=== PATIENT | female | born 1945 | race Caucasian/White ===

== ENCOUNTER → 2016-08-23 | Outpatient (CLI) | payer BC, MEDICARE ==
[~2016-08-23] MED LIST: Iopamidol 755 MG/ML 500 ML Multipack Bottle IVPUSH STA
--- NOTE | 2016-08-23 17:31 | CT ---
EXAM DATE: 08/23/16 PATIENT'S AGE: 71 Patient: STEVEN BURNETT Facility: [place], [place] Site . Site : 1945 Study: CT Abdomen/Pelvis [id number]/2017 1:07:51 PM Ordering Physician: Nona Sheth Final Report: INDICATION: LUQ pain. CT ABDOMEN AND PELVIS WITH CONTRAST TECHNIQUE: Multidetector CT imaging was performed through the abdomen and pelvis following intravenous contrast administration using 100 mL Isovue 370. Oral contrast was also given. Coronal and sagittal reconstructions were generated. COMPARISON: None. FINDINGS: Lower chest: Lung bases are clear. Liver: Within normal limits. Gallbladder and bile ducts: Several calcified gallstones within the gallbladder , without findings to suggest cholecystitis. No biliary dilation identified. Pancreas: Unremarkable. Spleen: Normal. Adrenals: Thickening of the right adrenal and probable tiny adenoma in the left adrenal. Kidneys, ureters, and urinary bladder: Cortical scarring and small parenchymal calcification at the upper pole of the left kidney with associated 3 centimeter fluid attenuation structure which likely represents a dilated calyx. Followup renal ultrasound to exclude an enlarging mass at the upper pole of the left kidney should be considered. No definite solid renal masses or hydronephrosis. Incompletely distended urinary bladder. No bladder mass or definite wall thickening. Gastrointestinal tract: Normal caliber small bowel without wall thickening or obstruction. The appendix is normal. Multiple diverticula of the distal descending colon and sigmoid, without evidence of diverticulitis. Small fat- containing umbilical hernia. Vascular structures: Normal caliber abdominal aorta. Mild aortoiliac atherosclerotic calcifications. Coronary artery calcifications are also noted. Peritoneum: No free air, abscess, or significant free fluid. Lymph nodes: No pathologically enlarged nodes identified. Reproductive organs: No pelvic masses. Bones: Moderate multilevel spondylosis. IMPRESSION: 1. No acute abnormality identified. No specific cause for the patient`s symptoms is demonstrated. 2. Left colonic diverticulosis without evidence of diverticulitis. 3. Chronic-appearing cortical scarring and probable dilated calyx at the upper pole of the left kidney. Follow up renal ultrasound in 6 months is suggested to rule out an enlarging lesion here. 4. Cholelithiasis. 5. Nonacute additional findings as detailed above. CINDI NEWMAN MD [employer] Dictated by Lawrence Newman MD @ 08/23/2016 1:32:31 PM Dictated by: Lawrence Newman MD @ 08/23/2016 13:33:01 (Electronic Signature) Report Signed by Proxy and Original Signed Document filed in the Medical Record. AMADA
== END ==
LOC: MW.DI 08:14
PROVIDERS: ATTEND Family Medicine
DX: R10.12 Left upper quadrant pain (principal); K57.90 Diverticulosis of intestine, part unspecified, without perforation or abscess without bleeding; K80.20 Calculus of gallbladder without cholecystitis without obstruction
CPT/HCPCS: 74177; Q9967

== ENCOUNTER 2019-03-03 10:54 | Emergency (ER) | payer MEDICARE, BC ==
[2019-03-03] MEDS ORDERED: Sodium Chloride 0.9% 10 ML Syringe FLUSH PRN (10:56)
[2019-03-03] MEDS ORDERED: Sodium Chloride 0.9% 2.5 ML Syringe FLUSH PRN (10:56)
[2019-03-03] MEDS ORDERED: Sodium Chloride 0.9% 1,000 ML IV ONE ×3 (10:57→20:27)
--- NOTE | 2019-03-03 11:03 | EDM.PDOC ---
ED HPI GENERAL MEDICAL PROBLEM - General Chief Complaint: CPR in Progress Stated Complaint: N/A Time Seen by Provider: 03/03/19 11:00 Source of Information: Reports: EMS History Limitations: Reports: No Limitations - History of Present Illness INITIAL COMMENTS - FREE TEXT/NARRATIVE: HISTORY AND PHYSICAL: History of present illness: Patient is a 71-year-old female, who is brought in by EMS. EMS states upon arrival, patient was talking to them and stating she didn't feel well. EMS states that she slumped down in her chair and when the attached monitor she was in asystole and did not have a pulse. CPR was started in route and 3 rounds of epinephrine were given with ROSC prior to arrival to ED. Upon arrival to the ED , tachycardic with pulse and Combitube in place with right tibial IO in place per EMS. Upon arrival 72%O2 on Combitube. BP 122/60. HR 120. Review of systems: As per history of present illness and below otherwise all systems reviewed and negative. Past medical history: As per history of present illness and as reviewed below otherwise noncontributory. Surgical history: As per history of present illness and as reviewed below otherwise noncontributory. Social history: See social history for further information Family history: As per history of present illness and as reviewed below otherwise noncontributory. Physical exam: General: Patient is unconscious. HEENT: Atraumatic, normocephalic, pupils equal and reactive bilaterally, negative for conjunctival pallor or scleral icterus, mucous membranes moist, throat with Combitube in place, frothy blood noted in the tube, neck supple, nontender, trachea midline. Lungs: Diffuse crackles to auscultation, breath sounds equal bilaterally. Heart: S1S2, regular rate and rhythm without overt murmur Abdomen: Obese, Soft, nondistended. Negative for masses or hepatosplenomegaly. Pelvis: Stable nontender. Genitourinary: Deferred. Rectal: Deferred. Skin: Pale, No lesions or rashes noted. Extremities: Atraumatic, negative for cords or calf pain. Neurovascular unremarkable. Neuro: Unconscious. Notes: Alejandra rebollar called en route to ED. Dr. Mc directly involved in patient care. FRANCHISE SPECIALIST/Anesthesia: changed out Combitube with 7 ET tube. See consult note for procedure. Along with Dr. Rivero, general surgery, central line placed in right femoral. Dr. Galvez, [facility], accepting of transfer. Flight arranged. BP80/50s, Dopamine given Diagnostics: CBC, CMP, chest x-ray, UA, urine urine drug screen, EKG, troponin, INR, BNP, ABG Therapeutics: Dopamine, saline, Norepinephrine, bicarb, vela cath, Yang-synephrine, rocephin Impression: Respiratory Failure Hypotension Critical care time, 40 minutes Plan: 1. Transfer to [facility] to Dr. Galvez via flight Definitive disposition and diagnosis as appropriate pending reevaluation and review of above. - Related Data Allergies Allergy/AdvReac Type Severity Reaction Status Date / Time No Known Allergies Allergy Verified 12/11/14 10:48 Home Meds: Home Meds Simvastatin [Zocor] 40 mg PO BEDTIME 11/03/13 [History] Bumetanide 2 mg PO BID 04/26/18 [History] FLUoxetine HCl [Fluoxetine] 10 mg PO DAILY 04/26/18 [History] Levothyroxine [Levothroid] 137 mcg PO ACBREAKFAST 04/26/18 [History] Losartan/Hydrochlorothiazide [Losartan-HCTZ 50-12.5 MG] 1 each PO DAILY [History] Potassium Chloride [Klor-Con 10] 10 meq PO BIDMEALS 04/26/18 [History] metFORMIN HCl [Metformin HCl] 1,000 mg PO BIDMEALS 04/26/18 [History] Past Medical History Cardiovascular History: Reports: Hypertension Endocrine/Metabolic History: Reports: Diabetes, Type II - Infectious Disease History Infectious Disease History: Reports: None Social & Family History - Family History Family Medical History: Noncontributory ED ROS GENERAL - Review of Systems Review Of Systems: ROS reveals no pertinent complaints other than HPI. ED EXAM, GENERAL - Physical Exam Exam: See Below (See dictation) Course - Vital Signs Last Recorded V/S: Last Vital Signs Temp 100.1 F 03/03/19 10:54 Pulse 68 03/03/19 10:54 Resp BP 139/65 03/03/19 10:54 Pulse Ox 74 L 03/03/19 10:54 - Orders/Labs/Meds Orders: Active Orders 24 hr Category Date Time Status Cardiac Monitoring [RC] . DIRECTED Care 03/03/19 10:56 Active EKG Documentation Completion [RC] STAT Care 03/03/19 10:56 Active Insert Vela Catheter [Insert Urinary Catheter] [OM.PC] Care 03/03/19 11:25 Ordered Q24H Urinary Catheter Assessment [RC] ASDIRECTED Care 03/03/19 12:33 Active DOPamine/Dextrose 5%-Water [DOPamine in D5W 400 MG/250 Med 03/03/19 11:11 Active ML] 400 mg in 250 ml IV ASDIRECTED DOPamine/Dextrose 5%-Water [DOPamine in D5W 400 MG/250 Med 03/03/19 11:15 Pending ML] 250 ml IV TITRATE Norepinephrine Bit/0.9 % NaCl [Norepinephr-0.9% NaCl 4 Med 03/03/19 11:30 Active mg/250] 4 mg in 250 ml IV TITRATE Phenylephrine [Yang-Synephrine] 10 mg Med 03/03/19 11:45 Active Sodium Chloride 0.9% [Normal Saline] 99 ml IV TITRATE Sodium Chloride 0.9% [Saline Flush] Med 03/03/19 10:56 Active 10 ml FLUSH ASDIRECTED PRN Sodium Chloride 0.9% [Saline Flush] Med 03/03/19 10:56 Active 2.5 ml FLUSH ASDIRECTED PRN Saline Lock Insert [OM.PC] Stat Oth 03/03/19 10:56 Ordered Medication Orders Dopamine HCl/Dextrose (Dopamine In D5w 400 Mg/250 Ml) 250 mls @ 0 mls/hr IV TITRATE ROSA; Protocol Norepinephrine Bitartrate (Norepinephr-0.9% Nacl 4 Mg/250) 4 mg in 250 mls @ 7.5 mls/hr IV TITRATE ROSA; Protocol Phenylephrine HCl 10 mg/ (Sodium Chloride) 100 mls @ 24 mls/hr IV TITRATE ROSA; Protocol Dopamine HCl/Dextrose (Dopamine In D5w 400 Mg/250 Ml) 400 mg in 250 mls @ 21.375 mls/hr IV ASDIRECTED ROSA; Protocol Sodium Chloride (Saline Flush) 10 ml FLUSH ASDIRECTED PRN PRN Reason: Keep Vein Open Sodium Chloride (Saline Flush) 2.5 ml FLUSH ASDIRECTED PRN PRN Reason: Keep Vein Open Labs: Laboratory Tests 03/03/19 03/03/19 03/03/19 Range/Units 11:10 11:10 11:10 WBC 38.03 H (4.0-11.0) K/uL RBC 3.63 L (4.30-5.90) M/uL Hgb 11.1 L (12.0-16.0) g/dL Hct 36.6 (36.0-46.0) % MCV 100.8 H (80.0-98.0) fL MCH 30.6 (27.0-32.0) pg MCHC 30.3 L (31.0-37.0) g/dL RDW Std Deviation 58.5 (28.0-62.0) fl RDW Coeff of Anahi 16 H (11.0-15.0) % Plt Count 247 (150-400) K/uL MPV 11.00 (7.40-12.00) fL Add Manual Diff YES Neutrophils % (Manual) 55 (48.0-80.0) % Band Neutrophils % 25 % Lymphocytes % (Manual) 11 L (16.0-40.0) % Monocytes % (Manual) 4 (0.0-15.0) % Metamyelocytes % 2 % Myelocytes % 3 % Nucleated RBC % 2.7 /100WBC Absolute Seg Neuts 20.9 H (1.4-5.7) Band Neutrophils # 9.5 Lymphocytes # (Manual) 4.2 H (0.6-2.4) Monocytes # (Manual) 1.5 H (0.0-0.8) Absolute Metamyelocyte 0.8 Absolute Myelocytes 1.1 Nucleated RBCs # 0 K/uL Vacuolated Monocytes 1+ SLIGHT Dohle Bodies 1+ SLIGHT INR 2.29 ABG pH (7.35-7.45) ABG pCO2 (35-45) mmHG ABG pO2 (75-100) mmHG ABG HCO3 (22-26) mEq/L ABG Total CO2 ABG Base Excess (-2.0-2.0) Sodium 145 (136-145) mmol/L Potassium 5.0 (3.5-5.1) mmol/L Chloride 104 (98-107) mmol/L Carbon Dioxide 13.0 L (21.0-32.0) mmol/L BUN 109 H (7.0-18.0) mg/dL Creatinine 4.4 H (0.6-1.0) mg/dL Est Cr Clr Drug Dosing TNP Estimated GFR (MDRD) 9.9 ml/min Glucose 422 H (74-106) mg/dL Calcium 9.8 (8.5-10.1) mg/dL Total Bilirubin 0.9 (0.2-1.0) mg/dL AST 138 H (15-37) IU/L ALT 58 (14-63) IU/L Alkaline Phosphatase 133 H (46-116) U/L Troponin I < 0.050 (0.000-0.056) ng/mL B-Natriuretic Peptide (<100) PG/ML Total Protein 7.9 (6.4-8.2) g/dL Albumin 1.7 L (3.4-5.0) g/dL Globulin 6.2 H (2.6-4.0) g/dL Albumin/Globulin Ratio 0.3 L (0.9-1.6) Urine Color Urine Appearance Urine pH (5.0-8.0) Ur Specific [place] (1.001-1.035) Urine Protein (NEGATIVE) mg/dL Urine Glucose (UA) (NEGATIVE) mg/dL Urine Ketones (NEGATIVE) mg/dL Urine Occult Blood (NEGATIVE) Urine Nitrite (NEGATIVE) Urine Bilirubin (NEGATIVE) Urine Urobilinogen (<2.0) EU/dL Ur Leukocyte Esterase (NEGATIVE) Urine Opiates Screen (NEGATIVE) Ur Oxycodone Screen (NEGATIVE) Urine Methadone Screen (NEGATIVE) Ur Barbiturates Screen (NEGATIVE) Ur Phencyclidine Scrn (NEGATIVE) Ur Amphetamine Screen (NEGATIVE) U Methamphetamines Scrn (NEGATIVE) U Benzodiazepines Scrn (NEGATIVE) U Cocaine Metab Screen (NEGATIVE) U Marijuana (THC) Screen (NEGATIVE) 03/03/19 03/03/19 03/03/19 Range/Units 11:10 11:11 11:26 WBC (4.0-11.0) K/uL RBC (4.30-5.90) M/uL Hgb (12.0-16.0) g/dL Hct (36.0-46.0) % MCV (80.0-98.0) fL MCH (27.0-32.0) pg MCHC (31.0-37.0) g/dL RDW Std Deviation (28.0-62.0) fl RDW Coeff of Anahi (11.0-15.0) % Plt Count (150-400) K/uL MPV (7.40-12.00) fL Add Manual Diff Neutrophils % (Manual) (48.0-80.0) % Band Neutrophils % % Lymphocytes % (Manual) (16.0-40.0) % Monocytes % (Manual) (0.0-15.0) % Metamyelocytes % % Myelocytes % % Nucleated RBC % /100WBC Absolute Seg Neuts (1.4-5.7) Band Neutrophils # Lymphocytes # (Manual) (0.6-2.4) Monocytes # (Manual) (0.0-0.8) Absolute Metamyelocyte Absolute Myelocytes Nucleated RBCs # K/uL Vacuolated Monocytes Dohle Bodies INR ABG pH 6.963 L* (7.35-7.45) ABG pCO2 47 H (35-45) mmHG ABG pO2 72 L (75-100) mmHG ABG HCO3 11 L (22-26) mEq/L ABG Total CO2 10.9 ABG Base Excess -20.9 L (-2.0-2.0) Sodium (136-145) mmol/L Potassium (3.5-5.1) mmol/L Chloride (98-107) mmol/L Carbon Dioxide (21.0-32.0) mmol/L BUN (7.0-18.0) mg/dL Creatinine (0.6-1.0) mg/dL Est Cr Clr Drug Dosing Estimated GFR (MDRD) ml/min Glucose (74-106) mg/dL Calcium (8.5-10.1) mg/dL Total Bilirubin (0.2-1.0) mg/dL AST (15-37) IU/L ALT (14-63) IU/L Alkaline Phosphatase (46-116) U/L Troponin I (0.000-0.056) ng/mL B-Natriuretic Peptide 155 H (<100) PG/ML Total Protein (6.4-8.2) g/dL Albumin (3.4-5.0) g/dL Globulin (2.6-4.0) g/dL Albumin/Globulin Ratio (0.9-1.6) Urine Color Urine Appearance Urine pH (5.0-8.0) Ur Specific [place] (1.001-1.035) Urine Protein (NEGATIVE) mg/dL Urine Glucose (UA) (NEGATIVE) mg/dL Urine Ketones (NEGATIVE) mg/dL Urine Occult Blood (NEGATIVE) Urine Nitrite (NEGATIVE) Urine Bilirubin (NEGATIVE) Urine Urobilinogen (<2.0) EU/dL Ur Leukocyte Esterase (NEGATIVE) Urine Opiates Screen NEGATIVE (NEGATIVE) Ur Oxycodone Screen NEGATIVE (NEGATIVE) Urine Methadone Screen NEGATIVE (NEGATIVE) Ur Barbiturates Screen NEGATIVE (NEGATIVE) Ur Phencyclidine Scrn NEGATIVE (NEGATIVE) Ur Amphetamine Screen NEGATIVE (NEGATIVE) U Methamphetamines Scrn NEGATIVE (NEGATIVE) U Benzodiazepines Scrn NEGATIVE (NEGATIVE) U Cocaine Metab Screen NEGATIVE (NEGATIVE) U Marijuana (THC) Screen NEGATIVE (NEGATIVE) 03/03/19 Range/Units 11:26 WBC (4.0-11.0) K/uL RBC (4.30-5.90) M/uL Hgb (12.0-16.0) g/dL Hct (36.0-46.0) % MCV (80.0-98.0) fL MCH (27.0-32.0) pg MCHC (31.0-37.0) g/dL RDW Std Deviation (28.0-62.0) fl RDW Coeff of Anahi (11.0-15.0) % Plt Count (150-400) K/uL MPV (7.40-12.00) fL Add Manual Diff Neutrophils % (Manual) (48.0-80.0) % Band Neutrophils % % Lymphocytes % (Manual) (16.0-40.0) % Monocytes % (Manual) (0.0-15.0) % Metamyelocytes % % Myelocytes % % Nucleated RBC % /100WBC Absolute Seg Neuts (1.4-5.7) Band Neutrophils # Lymphocytes # (Manual) (0.6-2.4) Monocytes # (Manual) (0.0-0.8) Absolute Metamyelocyte Absolute Myelocytes Nucleated RBCs # K/uL Vacuolated Monocytes Dohle Bodies INR ABG pH (7.35-7.45) ABG pCO2 (35-45) mmHG ABG pO2 (75-100) mmHG ABG HCO3 (22-26) mEq/L ABG Total CO2 ABG Base Excess (-2.0-2.0) Sodium (136-145) mmol/L Potassium (3.5-5.1) mmol/L Chloride (98-107) mmol/L Carbon Dioxide (21.0-32.0) mmol/L BUN (7.0-18.0) mg/dL Creatinine (0.6-1.0) mg/dL Est Cr Clr Drug Dosing Estimated GFR (MDRD) ml/min Glucose (74-106) mg/dL Calcium (8.5-10.1) mg/dL Total Bilirubin (0.2-1.0) mg/dL AST (15-37) IU/L ALT (14-63) IU/L Alkaline Phosphatase (46-116) U/L Troponin I (0.000-0.056) ng/mL B-Natriuretic Peptide (<100) PG/ML Total Protein (6.4-8.2) g/dL Albumin (3.4-5.0) g/dL Globulin (2.6-4.0) g/dL Albumin/Globulin Ratio (0.9-1.6) Urine Color YELLOW Urine Appearance CLEAR Urine pH 5.5 (5.0-8.0) Ur Specific [place] 1.020 (1.001-1.035) Urine Protein NEGATIVE (NEGATIVE) mg/dL Urine Glucose (UA) NEGATIVE (NEGATIVE) mg/dL Urine Ketones NEGATIVE (NEGATIVE) mg/dL Urine Occult Blood NEGATIVE (NEGATIVE) Urine Nitrite NEGATIVE (NEGATIVE) Urine Bilirubin NEGATIVE (NEGATIVE) Urine Urobilinogen 0.2 (<2.0) EU/dL Ur Leukocyte Esterase NEGATIVE (NEGATIVE) Urine Opiates Screen (NEGATIVE) Ur Oxycodone Screen (NEGATIVE) Urine Methadone Screen (NEGATIVE) Ur Barbiturates Screen (NEGATIVE) Ur Phencyclidine Scrn (NEGATIVE) Ur Amphetamine Screen (NEGATIVE) U Methamphetamines Scrn (NEGATIVE) U Benzodiazepines Scrn (NEGATIVE) U Cocaine Metab Screen (NEGATIVE) U Marijuana (THC) Screen (NEGATIVE) Meds: Medications Generic Name Dose Route Start Last Admin Trade Name Freq PRN Reason Stop Dose Admin Dopamine HCl/Dextrose 250 mls @ 0 mls/hr 03/03/19 11:15 Dopamine In D5w 400 Mg/250 Ml IV TITRATE ROSA Protocol 5 MCG/KG/MIN Norepinephrine Bitartrate 4 mg in 250 mls @ 7.5 mls/hr 03/03/19 11:30 Norepinephr-0.9% Nacl 4 Mg/250 IV TITRATE ROSA Protocol 2 MCG/MIN Phenylephrine HCl 10 mg/ 100 mls @ 24 mls/hr 03/03/19 11:45 Sodium Chloride IV TITRATE ROSA Protocol 40 MCG/MIN Dopamine HCl/Dextrose 400 mg in 250 mls @ 21.375 mls/hr 03/03/19 11:11 Dopamine In D5w 400 Mg/250 Ml IV ASDIRECTED ROSA Protocol 5 MCG/KG/MIN Sodium Chloride 10 ml 03/03/19 10:56 Saline Flush FLUSH ASDIRECTED PRN Keep Vein Open Sodium Chloride 2.5 ml 03/03/19 10:56 Saline Flush FLUSH ASDIRECTED PRN Keep Vein Open Discontinued Medications Generic Name Dose Route Start Last Admin Trade Name Freq PRN Reason Stop Dose Admin Epinephrine HCl 1 mg 03/03/19 11:04 Adrenalin IVPUSH 03/03/19 11:05 ONETIME ONE Sodium Chloride 1,000 mls @ 999 mls/hr 03/03/19 10:57 Normal Saline IV 03/03/19 11:57 STAT ONE Ceftriaxone Sodium/Dextrose 1 50 mls @ 100 mls/hr 03/03/19 11:50 03/03/19 12: 30 gm/ Premix IV 03/03/19 12:19 100 mls/hr ONETIME ONE Administration Ceftriaxone Sodium/Dextrose Confirm 03/03/19 11:52 03/03/19 12:29 Rocephin In Dextrose,Iso-Osm 1 Gm/50 Ml Administered 03/03/19 11:53 Not Given Dose 50 mls @ as directed .ROUTE .STK-MED ONE Midazolam HCl Confirm 03/03/19 11:06 03/03/19 12:29 Versed 1 Mg/Ml Administered 03/03/19 11:07 Not Given Dose 2 mg .ROUTE .STK-MED ONE Rocuronium [place] 30 mg 03/03/19 11:04 Zemuron IVPUSH 03/03/19 11:05 ONETIME ONE Sodium Bicarbonate 50 meq 03/03/19 11:31 Sodium Bicarbonate 8.4% IVPUSH 03/03/19 11:32 ONETIME ONE Succinylcholine Chloride 100 mg 03/03/19 10:51 Succinylcholine Chloride IV 03/03/19 10:52 ONETIME ONE Departure - Departure Time of Disposition: 12:51 Disposition: DC/Tfer to [facility] Clinical Impression: Respiratory failure Qualifiers: Chronicity: acute Respiratory failure complication: hypoxia and hypercapnia Qualified Code(s): J96.01 - Acute respiratory failure with hypoxia; J96.02 - Acute respiratory failure with hypercapnia Hypotension Qualifiers: Hypotension type: unspecified hypotension type Qualified Code(s): I95.9 - Hypotension, unspecified - Discharge Information Referrals: PCP,Unknown [Primary Care Provider] - Forms: ED Department Discharge - My Orders Last 24 Hours: My Active Orders 03/03/19 11:11 DOPamine/Dextrose 5%-Water [DOPamine in D5W 400 MG/250 ML] 400 mg in 250 ml IV ASDIRECTED 03/03/19 11:15 DOPamine/Dextrose 5%-Water [DOPamine in D5W 400 MG/250 ML] 250 ml IV TITRATE 03/03/19 11:25 Insert Vela Catheter [Insert Urinary Catheter] [OM.PC] Q24H 03/03/19 11:30 Norepinephrine Bit/0.9 % NaCl [Norepinephr-0.9% NaCl 4 mg/250] 4 mg in 250 ml IV TITRATE 03/03/19 11:45 Phenylephrine [Yang-Synephrine] 10 mg Sodium Chloride 0.9% [Normal Saline] 99 ml IV TITRATE 03/03/19 12:33 Urinary Catheter Assessment [RC] ASDIRECTED - Assessment/Plan Last 24 Hours: My Active Orders 03/03/19 11:11 DOPamine/Dextrose 5%-Water [DOPamine in D5W 400 MG/250 ML] 400 mg in 250 ml IV ASDIRECTED 03/03/19 11:15 DOPamine/Dextrose 5%-Water [DOPamine in D5W 400 MG/250 ML] 250 ml IV TITRATE 03/03/19 11:25 Insert Vela Catheter [Insert Urinary Catheter] [OM.PC] Q24H 03/03/19 11:30 Norepinephrine Bit/0.9 % NaCl [Norepinephr-0.9% NaCl 4 mg/250] 4 mg in 250 ml IV TITRATE 03/03/19 11:45 Phenylephrine [Yang-Synephrine] 10 mg Sodium Chloride 0.9% [Normal Saline] 99 ml IV TITRATE 03/03/19 12:33 Urinary Catheter Assessment [RC] ASDIRECTED
[2019-03-03] MEDS ORDERED: Rocuronium 100 MG/10 ML Syringe IVPUSH ONE (11:04)
[2019-03-03] MEDS ORDERED: EPINEPHrine 1 MG/1 ML Amp IVPUSH ONE (11:04)
[2019-03-03] MEDS ORDERED: Midazolam 1 MG/ML 2 ML SDV ONE (11:06)
[2019-03-03] MEDS ORDERED: DOPamine/Dextrose 5%-Water 400 MG/250 ML BAG IV SCH (11:11)
[2019-03-03] MEDS ORDERED: DOPamine/Dextrose 5%-Water 250 ML IV SCH (11:15)
[2019-03-03] MEDS ORDERED: Sodium Bicarbonate 8.4% 50 MEQ/50 ML Syringe IVPUSH ONE (11:31)
--- NOTE | 2019-03-03 11:31 | PCM.SN ---
- Free Text/Narrative Note: Called to the ER for Code Blue. On arrival patient has ermias airway in place with bilateral breath sounds, copious bloody secretions are noted. Patient on arrival has a pulse. Decision was made to exchanged ermias airway for ETT. Patient has agonal respiratory effort and is bitting. Succinylcholine 120mg IVP was given for relaxation. Ermias airway was deflated and removed. DL with Castro 2 yields Grade 3 view with copious blood secretions in the airway. Aggressive suctioning was performed, Glidescope #3 was used, bougie was advanced into position, 7.0 cuffed ETT was advanced over the bougie to 22cm at the lips. Bougie was removed, bilateral breath sounds and + EtCO2 were noted. CXR and ABG are pending at this time. See nursing notes for all vital signs documentation.
[2019-03-03] MEDS ORDERED: DOPamine/Dextrose 5%-Water 400 MG/250 ML BAG ONE (11:36)
[2019-03-03] MEDS ORDERED: Phenylephrine 10 MG in Sodium Chloride 0.9% 99 ML IV SCH (11:45)
[2019-03-03] MEDS ORDERED: cefTRIAXone 1 GM in Premix Bag 1 BAG IV ONE (11:50)
--- NOTE | 2019-03-03 11:51 | PCM.SN ---
- Free Text/Narrative Note: Called to ER for Code Blue. Upon arrival L femora; prepped and draped, l femoral line placed via sterile technique, 7 burkinan threaded and secured. R a- line placed via aseptic technique and secured/monitored. 10:45-11:45
--- NOTE | 2019-03-03 11:52 | CR ---
Chest: Portable view of the chest was obtained. Comparison: Prior chest x-ray of 09/11/17. Findings: Heart size and mediastinum are within normal limits for portable technique. Tip of endotracheal tube lies within the trachea approximately 4 cm from the js. Lungs show no acute parenchymal change. Bony structures are grossly intact. Impression: 1. Tip of endotracheal tube felt to be satisfactory in position. 2. Nothing acute is otherwise seen on portable chest x-ray. Diagnostic code #2 MTDD
[2019-03-03 11:58] VITALS: BP 139/65; PULSE 68
[2019-03-03] MEDS ORDERED: Etomidate 2 MG/ML 20 ML SDV IVPUSH ONE (12:00)
[2019-03-03 12:02] LABS: BLOOD UREA NITROGEN,BUN 109 mg/dL (7.0-18.0); CHLORIDE,CL 104 mmol/L (98-107); GLUCOSE RANDOM 422 mg/dL (74-106); SODIUM,NA 145 mmol/L (136-145)
== END 2019-03-03 12:52 ==
LOC: MW.ED 10:54
DX: J96.01 Acute respiratory failure with hypoxia (principal); J96.02 Acute respiratory failure with hypercapnia; I95.9 Hypotension, unspecified; I10 Essential (primary) hypertension; E11.9 Type 2 diabetes mellitus without complications; Z79.84 Long term (current) use of oral hypoglycemic drugs; Z79.899 Other long term (current) drug therapy
CPT/HCPCS: 36415; 36600; 51702; 71045; 80053; 80305; 81003; 82803; 83880; 84484; 85025; 85610; 93005; 96365; 96375; 99285; J0171; J0330; J0696; J1265; J3490; J7040; 31500; 99291